=== PATIENT | female | born 1990 | race Caucasian/White ===

== ENCOUNTER 2018-11-02 07:38 | Emergency (ER) | payer SELFPAY ==
[~2018-11-02] VITALS: Ht 157.5 cm; Wt 95.3 kg
[2018-11-02 07:43] VITALS: Ht 157.5 cm; Wt 95.3 kg
[2018-11-02 12:14] VITALS: BP 125/51
== END 2018-11-02 12:14 | disposition home or self-care (01) ==
LOC: ED 07:38
DX: S06.0X0A Concussion without loss of consciousness, initial encounter (principal); S42.002A Fracture of unspecified part of left clavicle, initial encounter for closed fracture; S91.112A Laceration without foreign body of left great toe without damage to nail, initial encounter; S20.212A Contusion of left front wall of thorax, initial encounter; S30.1XXA Contusion of abdominal wall, initial encounter; S80.12XA Contusion of left lower leg, initial encounter; V49.9XXA Car occupant (driver) (passenger) injured in unspecified traffic accident, initial encounter; Y93.I9 Activity, other involving external motion; Y92.413 State road as the place of occurrence of the external cause; Y99.8 Other external cause status
CPT/HCPCS: J1885